=== PATIENT | female | born 1985 | race Caucasian/White ===

== ENCOUNTER 2018-06-04 13:27 | Inpatient (IN) | payer MEDICAID ==
[2018-06-04 15:31] LABS: ADD MAN DIFF? NO
[2018-06-04 15:36] LABS: URINE BLOOD (Dip) POC 3+ (NEGATIVE); URINE GLUCOSE (Dip) POC Negative (NEGATIVE); URINE KETONES (Dip) POC Negative (NEGATIVE); URINE LEUKOCYTE EST (Dip) POC 1+ (NEGATIVE); URINE NITRITE (Dip) POC Negative (NEGATIVE); URINE TOTAL PROTEIN POC Negative (NEGATIVE)
[2018-06-04 15:36] LABS: URINE PH (Dip) POC 6.5 (5.0-8.5)
[2018-06-04 15:37] LABS: WHITE BLOOD COUNT 20.5 10^3/ul (4.8-10.8)
[2018-06-04 15:37] LABS: ABNORMAL IP MESSAGE 1; BASOPHILS % 0.2 % (0.0-2.0); HEMOGLOBIN 12.4 g/dl (12.0-16.0); LYMPHOCYTES # 0.5 10^3/ul (0.8-2.9); LYMPHOCYTES % 2.3 % (15.0-51.0); MEAN CORPUSCULAR HGB CONC 33.5 g/dl (32.0-37.0); MEAN CORPUSCULAR VOLUME 86.7 fl (82.0-101.0); MEAN PLATELET VOLUME 9.1 fl (7.4-10.4); MONOCYTE # 0.7 10^3/ul (0.3-0.9); MONOCYTES % 3.5 % (0.0-11.0); NEUTROPHILS % 93.1 % (39.0-77.0); PLATELET COUNT 385 10^3/UL (140-415); RED BLOOD COUNT 4.27 10^6/ul (4.20-5.40); RED CELL DISTRIBUTION WIDTH 13.2 % (11.5-14.5)
[2018-06-04 15:50] LABS: POSITIVE DIFF @See below
[2018-06-04 15:53] LABS: ALANINE AMINOTRANSFERASE 20 IU/L (13-69); ALBUMIN 3.6 g/dl (3.3-4.9); ALKALINE PHOSPHATASE 165 IU/L (42-121); ANION GAP 15 (8-16); ASPARTATE AMINO TRANSFERASE 26 IU/L (15-46); BILIRUBIN,INDIRECT 1.2 mg/dl (0-1.1); BILIRUBIN,TOTAL 1.2 mg/dl (0.2-1.3); BLOOD UREA NITROGEN 18 mg/dl (7-20); CALCIUM 9.9 mg/dl (8.4-10.2); CARBON DIOXIDE 23 mmol/L (21-31); CHLORIDE 105 mmol/L (97-110); CREATININE 0.72 mg/dl (0.44-1.00); GLUCOSE 99 mg/dl (70-220); POTASSIUM 4.1 mmol/L (3.5-5.1); SODIUM 139 mmol/L (135-144); TOTAL PROTEIN 7.2 g/dl (6.1-8.1)
[2018-06-04] MEDS: SODIUM CHLORIDE 0.9% 1L BAG IV* (15:53)
[2018-06-04 15:54] LABS: LACTIC ACID 1.3 mmol/L (0.5-2.0)
[2018-06-04 15:55] LABS: INR 0.93; PROTIME 12.5 Sec (11.9-14.9)
[2018-06-04 15:56] LABS: PARTIAL THROMBOPLASTIN TIME 27.1 Sec (23.0-35.0)
[2018-06-04] MEDS: CEFTRIAXONE 1 GM/50 ML (PMX) 50 ML IVPB (16:03)
[2018-06-04] MEDS ORDERED: morphine 2 MG INJ IV (18:30)
[2018-06-04] MEDS ORDERED: ZOLPIDEM 5 MG TAB PO (18:30)
[2018-06-04] MEDS ORDERED: NACL 0.9% 3 ML SYG IV (18:30)
[2018-06-04] MEDS ORDERED: DOCUSATE SODIUM 100 MG CAP PO (18:30)
[2018-06-04] MEDS ORDERED: MAGNESIUM HYDROXIDE 30ML CUP PO (18:30)
[2018-06-04] MEDS ORDERED: ACETAMINOPHEN 325 MG TAB PO (18:30)
[2018-06-04] MEDS ORDERED: HYDROCODONE/APAP (5/325) TAB PO (18:30)
[2018-06-04] MEDS ORDERED: ONDANSETRON 4 MG INJ IV (18:30)
[2018-06-04] MEDS: SOD CHLORIDE 0.9% 1,000 ML IV (19:58)
[2018-06-04] MEDS: FERROUS SULFATE (EC) 325 MG TAB PO (20:52)
[2018-06-04] MEDS: DOCUSATE SODIUM 100 MG CAP PO (20:52)
[2018-06-05] MEDS: SOD CHLORIDE 0.9% 1,000 ML IV ×3 (05:00→15:19)
[2018-06-05 05:51] LABS: ADD MAN DIFF? NO
[2018-06-05 05:54] LABS: BASOPHILS % 0.3 % (0.0-2.0); EOSINOPHILS # 0.2 10^3/ul (0.0-0.5); EOSINOPHILS % 1.2 % (0.0-7.0); HEMATOCRIT 31.4 % (37.0-47.0); HEMOGLOBIN 10.3 g/dl (12.0-16.0); LYMPHOCYTES # 1.5 10^3/ul (0.8-2.9); LYMPHOCYTES % 10.5 % (15.0-51.0); MEAN CORPUSCULAR HEMOGLOBIN 29.3 pg (29.0-33.0); MEAN CORPUSCULAR HGB CONC 32.8 g/dl (32.0-37.0); MEAN CORPUSCULAR VOLUME 89.5 fl (82.0-101.0); MEAN PLATELET VOLUME 9.1 fl (7.4-10.4); MONOCYTE # 0.6 10^3/ul (0.3-0.9); MONOCYTES % 4.3 % (0.0-11.0); NEUTROPHIL # 11.9 10^3/ul (1.6-7.5); NEUTROPHILS % 83.2 % (39.0-77.0); PLATELET COUNT 319 10^3/UL (140-415); RED BLOOD COUNT 3.51 10^6/ul (4.20-5.40); RED CELL DISTRIBUTION WIDTH 13.5 % (11.5-14.5)
[2018-06-05 05:54] LABS: WHITE BLOOD COUNT 14.3 10^3/ul (4.8-10.8)
[2018-06-05 06:21] LABS: ANION GAP 8 (8-16); BLOOD UREA NITROGEN 17 mg/dl (7-20); CALCIUM 8.7 mg/dl (8.4-10.2); CARBON DIOXIDE 25 mmol/L (21-31); CHLORIDE 111 mmol/L (97-110); CREATININE 0.58 mg/dl (0.44-1.00); GLUCOSE 83 mg/dl (70-220); MAGNESIUM 1.9 mg/dl (1.7-2.5); PHOSPHORUS 3.8 mg/dl (2.5-4.9); SODIUM 140 mmol/L (135-144)
[2018-06-05 06:34] LABS: HEMOGLOBIN A1C 5.2 % (0-5.9)
[2018-06-05] MEDS: DOCUSATE SODIUM 100 MG CAP PO ×2 (08:39→20:23)
[2018-06-05] MEDS: FERROUS SULFATE (EC) 325 MG TAB PO ×2 (08:39→20:23)
[2018-06-05] MEDS: CEFTRIAXONE 1 GM/50 ML (PMX) 50 ML IVPB (16:01)
[2018-06-05] MEDS ORDERED: morphine LIQ (10 MG/5 ML) CUP PO (19:00)
[2018-06-06 05:12] LABS: ADD MAN DIFF? NO
[2018-06-06 05:15] LABS: BASOPHILS % 0.6 % (0.0-2.0); EOSINOPHILS # 0.3 10^3/ul (0.0-0.5); EOSINOPHILS % 3.8 % (0.0-7.0); HEMATOCRIT 32.6 % (37.0-47.0); HEMOGLOBIN 10.4 g/dl (12.0-16.0); LYMPHOCYTES # 1.5 10^3/ul (0.8-2.9); LYMPHOCYTES % 22.5 % (15.0-51.0); MEAN CORPUSCULAR HEMOGLOBIN 28.7 pg (29.0-33.0); MEAN CORPUSCULAR HGB CONC 31.9 g/dl (32.0-37.0); MEAN CORPUSCULAR VOLUME 90.1 fl (82.0-101.0); MEAN PLATELET VOLUME 9.4 fl (7.4-10.4); MONOCYTE # 0.4 10^3/ul (0.3-0.9); MONOCYTES % 5.7 % (0.0-11.0); NEUTROPHIL # 4.6 10^3/ul (1.6-7.5); PLATELET COUNT 325 10^3/UL (140-415); RED BLOOD COUNT 3.62 10^6/ul (4.20-5.40); RED CELL DISTRIBUTION WIDTH 13.2 % (11.5-14.5)
[2018-06-06 05:15] LABS: WHITE BLOOD COUNT 6.8 10^3/ul (4.8-10.8)
[2018-06-06 05:55] LABS: ANION GAP 8 (8-16); BLOOD UREA NITROGEN 11 mg/dl (7-20); CARBON DIOXIDE 24 mmol/L (21-31); CHLORIDE 114 mmol/L (97-110); CREATININE 0.62 mg/dl (0.44-1.00); GLUCOSE 95 mg/dl (70-220); POTASSIUM 3.8 mmol/L (3.5-5.1); SODIUM 142 mmol/L (135-144)
[2018-06-06] MEDS: FERROUS SULFATE (EC) 325 MG TAB PO (08:35)
[2018-06-06] MEDS: DOCUSATE SODIUM 100 MG CAP PO (08:35)
[2018-06-06] MEDS: CEFTRIAXONE 1 GM/50 ML (PMX) 50 ML IVPB (10:48)
== END 2018-06-06 13:45 | disposition home or self-care (01) | DRG 776 ==
LOC: E/R 13:27 → 2NE 17:36
PROVIDERS: Internal Medicine
DX: O85 Puerperal sepsis (principal); O86.20 Urinary tract infection following delivery, unspecified; O92.79 Other disorders of lactation
CPT/HCPCS: 36415; 71045; 80048; 80053; 81003; 83036; 83605; 83735; 84100; 85025; 85610; 85730; 87040; 87086; 87400; 93005; 96361; 96365; 99217; 99285-25